=== PATIENT | female | born 1985 | race Caucasian/White ===

== ENCOUNTER → 2025-07-08 14:32 | Outpatient (BNVA) | payer OTHER, SELFPAY | PROVIDERS: PCP Registered Nurse; Visit Provider Internal Medicine Cardiovascular Disease | DX: R07.9 Chest pain, unspecified (principal); R94.31 Abnormal electrocardiogram [ECG] [EKG] | CPT/HCPCS: 93005 ==

== ENCOUNTER 2025-08-08 01:07 | Emergency (ER) | payer OTHER, SELFPAY ==
[2025-08-08 01:12] VITALS: BP 166/109; PULSE 95; RESP 24; TEMP 36.6; O2SAT 100; BMI 33.7
--- NOTE | 2025-08-08 01:13 | ECG_ITS ---
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
--- NOTE | 2025-08-08 01:16 | XRR_ITS ---
PROCEDURE INFORMATION: Exam: XR Chest Exam date and time: 08/08/2025 1:36 AM Age: 39 years old Clinical indication: Pain; Chest pressure; Additional info: Cp TECHNIQUE: Imaging protocol: Radiologic exam of the chest. Views: 1 view. COMPARISON: No relevant prior studies available. FINDINGS: Lungs: Unremarkable. No consolidation. Pleural spaces: Unremarkable. No pleural effusion. No pneumothorax. Heart/Mediastinum: Unremarkable. No cardiomegaly. Bones/joints: Unremarkable. XR/XR chest 1V portable 15110 IMPRESSION: No acute findings.
[2025-08-08 01:20] LABS: Hematocrit 40.6 % (36-47); Hemoglobin 14.00 g/dL (11.27-16.99); Mean Corpuscular HGB Conc 34.5 g/dL (30-55); Mean Corpuscular Hemoglobin 29.1 pg (27-33); Mean Corpuscular Volume 84.4 fl (85-98); Nucleated Red Blood Cells % 0 %; Platelet Count 284 10^3/cmm (157-399); Red Blood Count 4.81 10^6/uL (3.85-5.65); White Blood Count 6.04 10^3/uL (3.29-11.43)
--- NOTE | 2025-08-08 01:31 | CTR_ITS ---
PROCEDURE INFORMATION: Exam: CT Head Without Contrast Exam date and time: 08/08/2025 1:42 AM Age: 39 years old Clinical indication: Pain; Headache; LOPEZ with dizziness; Additional info: Headache, dizzy TECHNIQUE: Imaging protocol: Computed tomography of the head without contrast. Radiation optimization: All CT scans at this facility use at least one of these dose optimization techniques: automated exposure control; mA and/or kV adjustment per patient size (includes targeted exams where dose is matched to clinical indication); or iterative reconstruction. COMPARISON: No relevant prior studies available. RADIATION DOSE METRICS: Total DLP (mGy-cm): 1013.73 FINDINGS: Brain: No acute infarction, hemorrhage, mass, or extra-axial fluid collection is identified. No midline shift. Cerebral ventricles: No hydrocephalus. Paranasal sinuses: Paranasal sinuses are grossly clear. Mastoid air cells: Mastoid air cells are grossly clear. Bones: Calvarium appears intact. Soft tissues: Unremarkable. CT/CT head wo con* [id number] IMPRESSION: No acute intracranial abnormality.
[2025-08-08 01:40] VITALS: BP 139/79; PULSE 83; RESP 16; O2SAT 100
[2025-08-08 01:41] LABS: Troponin(5th) Baseline < 6 ng/L (0-10)
[2025-08-08 01:43] LABS: Alanine Aminotransferase 39 U/L (0-33); Albumin Level 4.8 g/dL (3.5-5.2); Alkaline Phosphatase 81 U/L (35-105); Anion Gap 16.7 (5-19); Aspartate Amino Transferase 29 U/L (0-32); Blood Urea Nitrogen 8 mg/dL (6-20); Calcium 9.3 mg/dL (8.5-10.5); Carbon Dioxide 24 mmol/L (22-29); Chloride 98 mmol/L (98-107); Creatinine Clr Calc Pharmacy 165.1230; Globulin 2.6 g/dL (1.3-4.6); Glucose 164 mg/dL (65-115); Osmolality Calculated 282 mOsm/kg (285-295); Potassium 3.7 mmol/L (3.5-5.1); Sodium 135 mmol/L (136-145); Total Protein 7.4 g/dL (6.6-8.7)
[2025-08-08 01:48] LABS: NT Pro B Type Natriuretic Pept < 36 pg/mL (0-125)
[2025-08-08 01:53] VITALS: RESP 16; O2SAT 96
[2025-08-08] MEDS: ondansetron 2 mg/ML SDV 2 mL 4 MG IVP ×2 (01:53→03:45)
[2025-08-08] MEDS: morphine 4 mg/mL SDV 1 mL IVP (01:53)
--- NOTE | 2025-08-08 01:53 | PC.NURSE ---
Went in to give pt metoprolol and patient told me it is supposed to be in her chart that she cannot take calcium channel blockers and she cannot have lol's (labetalol, metoprolol, sotalol) pt states they bottom her out.
[2025-08-08 02:15] VITALS: BP 130/91; PULSE 83; RESP 13; O2SAT 98
[2025-08-08 02:27] LABS: Thyroid Stimulating Hormone 3.41 uIU/mL (0.27-4.20)
--- NOTE | 2025-08-08 02:52 | W.ED.CHESTPA ---
HPI - Chest Pain General: Chief Complaint: Chest Pain Stated Complaint: Chest Pain, radiates down LT arm, Bad headache Time Seen by Provider: 08/08/25 01:15 History of Present Illness: Patient is a 39-year-old female with a history of atrial fibrillation and inappropriate sinus tachycardia who presents with worsening symptoms over the past three days. She reports experiencing elevated heart rate (140-160 bpm), dizziness, lightheadedness, nausea, and chest discomfort with a sensation of her heart 'beating out of her chest.' She also describes left arm numbness, pressure in her chest, and pain under her left breast that radiates to her arm. Patient notes significant shortness of breath and extreme fatigue, stating she cannot walk from her living room to the bathroom without feeling like she will pass out. She has developed a persistent frontal headache for the past three days that extends to her ears and neck. The patient reports that her current episode began approximately three days ago, with symptoms worsening significantly yesterday afternoon. She recently moved from [place] to [place] in . She established care with Dr. Hansen on July 08, who recently changed her medications. She was switched from losartan to valsartan today, and from sotalol to Corlanor on Sunday. The patient mentions that her [place] physicians had suggested early congestive heart failure. Related Data Home Medications ?Medication ?Instructions ?Recorded ?Confirmed apixaban 5 mg tablet (Eliquis) 5 mg PO BID 07/08/25 07/08/25 duloxetine 30 mg capsule,delayed 30 mg PO DAILY 07/08/25 07/08/25 release duloxetine 60 mg capsule,delayed 60 mg PO DAILY 07/08/25 07/08/25 release gabapentin 600 mg tablet 600 mg PO BID 07/08/25 07/08/25 hydrochlorothiazide 12.5 mg tablet 12.5 mg PO BID 07/08/25 07/08/25 metformin 500 mg tablet 500 mg PO BID 07/08/25 07/08/25 rosuvastatin 5 mg tablet (Crestor) 5 mg PO DAILY 07/08/25 07/08/25 sotalol 160 mg tablet (Sotalol AF) 160 mg PO BID 07/08/25 07/08/25 Previous Rx's ?Medication ?Instructions ?Recorded valsartan 160 mg tablet 160 mg PO DAILY #30 tabs 08/07/25 Allergies Allergy/AdvReac Type Severity Reaction Status Date / Time Bleach (Sodium Hypochlorite) Allergy Mild Unknown Verified 07/08/25 14:25 diltiazem Allergy Unknown Verified 07/08/25 14:25 doxycycline Allergy Unknown Verified 07/08/25 14:25 PFS ED PFSH: Medical History Afib Family History (Updated 07/08/25 @ 08:44 by Oriana Jean Baptiste LPN) Father Stroke Social History Smoking and tobacco/nicotine status: unknown if used tobacco/nicotine Alcohol intake: never Substance/Drug Use: never Physical Exam Const: COMMON NORMALS: no acute distress GENERAL APPEARANCE: cooperative; not ill appearing and not frail appearing HENMT: COMMON NORMALS: normocephalic, atraumatic and Normal external nose present HEAD & SCALP: normocephalic and atraumatic FACE & SINUS: normal facial exam and face symmetric NOSE: Normal external nose present Eye: COMMON NORMALS: Equal, round and reactive pupils present and EOMs intact bilaterally PUPIL: Yes Equal, round and reactive pupils present Neck/C-Spine: GENERAL: Yes trachea midline Chest: CHEST: Yes Symmetrical chest wall rise Resp: COMMON NORMALS: normal respiratory effort, No retractions, No use of accessory muscles and clear to auscultation bilaterally AUSCULTATION: clear to auscultation bilaterally Cardio: COMMON NORMALS: regular rate and regular rhythm RATE: regular rate RHYTHM: regular rhythm GI: COMMON NORMALS: Normal to inspection, nondistended, normoactive bowel sounds present Extremity: COMMON NORMALS: no pedal edema Neuro: TAMMY COMA SCALE: document GCS findings Tammy coma scale eye opening: Spontaneous [place] coma scale verbal response: Orientated Tammy coma scale motor response: Obey commands Tammy coma scale total score: 15 SENSORY EXAM: Yes extremities (intact) Psych: COMMON NORMALS: speech normal SPEECH: Yes normal speech Skin: COMMON NORMALS: no rashes or lesions noted GENERAL SKIN EXAM: no rashes or lesions noted Course Vital Signs: Vital signs: Vital Signs Temperature 97.9 F 08/08/25 01:12 Pulse Rate 76 08/08/25 04:00 Respiratory Rate 13 08/08/25 02:15 Blood Pressure 115/79 11/01/25 04:00 Pulse Oximetry 97 08/08/25 04:00 MDM - Chest Pain Medical Decision Making Patient was hypertensive initially, and heart rate was around 100. Metoprolol was ordered initially, but the patient refused to. Metoprolol, stating that she just been taken off of sotalol. She was given morphine for headache. Blood pressure and heart rate are now improved. Heart rate is sinus, 83, blood pressure 115/79 saturation is 96% on room air with respirations of 12. CBC is normal. BMP is not remarkable. Chest x-ray is negative. Head CT is negative. First troponin is nondetectable. BNP is nondetectable. TSH is normal. Pulmonary embolism would be highly unlikely given the patient is compliant with her apixaban. She is stable for discharge at this point. She can follow-up with her cleaner signs. Lab Data 08/08/25 01:16 08/08/25 01:16 Radiology Impressions Chest X-Ray 08/08/25 01:16 IMPRESSION: No acute findings. Head CT 08/08/25 01:31 IMPRESSION: No acute intracranial abnormality. Laboratory Results WBC 6.04 10^3/uL (3.29-11.43) 08/08/25 01:16 RBC 4.81 10^6/uL (3.85-5.65) 08/08/25 01:16 Hgb 14.00 g/dL (11.27-16.99) 08/08/25 01:16 Hct 40.6 % (36-47) 08/08/25 01:16 MCV 84.4 fl (85-98) L 08/08/25 01:16 MCH 29.1 pg (27-33) 08/08/25 01:16 MCHC 34.5 g/dL (30-55) 08/08/25 01:16 RDW 11.5 % (12.1-15.1) L 08/08/25 01:16 Plt Count 284 10^3/cmm (157-399) 08/08/25 01:16 MPV 9.0 fL (7.4-10.4) 08/08/25 01:16 Neut % (Auto) 43.3 % 08/08/25 01:16 Lymph % (Auto) 48.0 % 08/08/25 01:16 [place] % (Auto) 6.3 % 08/08/25 01:16 Eos % (Auto) 1.5 % 08/08/25 01:16 Baso % (Auto) 0.7 % 08/08/25 01:16 Neut # (Auto) 2.62 10^3/uL (1.8-7.7) 08/08/25 01:16 Lymph # (Auto) 2.9 10^3/uL (0.8-4.8) 08/08/25 01:16 [place] # (Auto) 0.4 10^3/uL (0.2-0.9) 08/08/25 01:16 Eos # (Auto) 0.1 10^3/uL (0.0-0.8) 08/08/25 01:16 Baso # (Auto) 0.0 10^3/uL (0.0-0.1) 08/08/25 01:16 Nucleated RBC % (auto) 0 % 08/08/25 01:16 Nucleated RBCs # 0.0 /100WBC 08/08/25 01:16 Sodium 135 mmol/L (136-145) L 08/08/25 01:16 Potassium 3.7 mmol/L (3.5-5.1) 08/08/25 01:16 Chloride 98 mmol/L (98-107) 08/08/25 01:16 Carbon Dioxide 24 mmol/L (22-29) 08/08/25 01:16 Anion Gap 16.7 (5-19) 08/08/25 01:16 BUN 8 mg/dL (6-20) 08/08/25 01:16 Creatinine 0.5 mg/dL (0.5-0.9) 08/08/25 01:16 GFR Calculation 138.1 mL/min (90-130) H 08/08/25 01:16 Glucose 164 mg/dL (65-115) H 08/08/25 01:16 Calculated Osmolality 282 mOsm/kg (285-295) L 08/08/25 01:16 Calcium 9.3 mg/dL (8.5-10.5) 08/08/25 01:16 Total Bilirubin 0.3 mg/dL (0.15-1.2) 08/08/25 01:16 AST 29 U/L (0-32) 08/08/25 01:16 ALT 39 U/L (0-33) H 08/08/25 01:16 Alkaline Phosphatase 81 U/L (35-105) 08/08/25 01:16 Troponin T Baseline < 6 ng/L (0-10) 08/08/25 01:16 Troponin T 120 Minute < 6.0 ng/L (0-10) 08/08/25 03:32 Delta Troponin T 0 ABS# (0-10) 08/08/25 03:32 NT-Pro-B Natriuret Pep < 36 pg/mL (0-125) 08/08/25 01:16 Total Protein 7.4 g/dL (6.6-8.7) 08/08/25 01:16 Albumin 4.8 g/dL (3.5-5.2) 08/08/25 01:16 Globulin 2.6 g/dL (1.3-4.6) 08/08/25 01:16 TSH 3.41 uIU/mL (0.27-4.20) 08/08/25 01:16 All radiology interpretation(s) finalized by discharge Discharge Plan Discharge Patient Disposition: Home Clinical Impression: Hypertension, Chest pain Condition: Stable Prescriptions: No Action sotalol [Sotalol AF] 160 mg tablet 160 mg PO BID metformin 500 mg tablet 500 mg PO BID gabapentin 600 mg tablet 600 mg PO BID rosuvastatin [Crestor] 5 mg tablet 5 mg PO DAILY duloxetine 30 mg capsule,delayed release(DR/EC) 30 mg PO DAILY duloxetine 60 mg capsule,delayed release(DR/EC) 60 mg PO DAILY hydrochlorothiazide 12.5 mg tablet 12.5 mg PO BID Eliquis 5 mg tablet 5 mg PO BID valsartan 160 mg tablet 160 mg PO DAILY Qty: 30 2RF Discharge Orders: Discharge ED (Routine); Ordered 08/08/25 Ordered By: Rojas Dong Referrals: Olivier Maldonado POOLROOM TABLE ATTENDANT [Primary Care Provider] - 1-3 days Patient Instructions: Chest Pain (ED), Hypertension (ED), Opioid Safety, Pain Management, Patient Portal & Cam Instructions Activity Restrictions/Additional Instructions: You were seen for left-sided chest discomfort, high blood pressure. Your blood pressure is normalized. Your heart rates in the 70s. You are in a normal sinus rhythm currently. No specific cause for your chest discomfort was found on your evaluation. Continue to take your medications as prescribed. Check your blood pressure twice daily. Call your doctor on Sunday to follow-up. They may wish to see you. Return for any worsening symptoms despite the above. Print Language: Brazilian Coding Level of Care Code ED Reach Lift Truck Driver for Mario Tyler Heart Score HEART Score Components History: Slightly Suspicous EKG: Non-specific Changes Age: Less than 45 yrs Risk Factors: 1 or 2 Risk Factors Troponin: Baseline Trop <16 ng/L HEART Score RESULT HEART Score: 2
[2025-08-08 04:00] VITALS: BP 115/79; PULSE 76; O2SAT 97
[2025-08-08 04:05] LABS: Troponin 5 2HR < 6.0 ng/L (0-10); Troponin 5 2HR Delta 0 ABS# (0-10)
== END 2025-08-08 04:01 | disposition home or self-care (01) ==
PROVIDERS: Emergency Provider Emergency Medicine; PCP Registered Nurse
DX: I10 Essential (primary) hypertension (principal); R07.9 Chest pain, unspecified; Z79.84 Long term (current) use of oral hypoglycemic drugs; Z79.01 Long term (current) use of anticoagulants
CPT/HCPCS: 36415; 70450; 71045; 80053; 83880; 84443; 84484; 85025; 93005; 96374; 96375; 96376; 99285; J2270; J2405